=== PATIENT | male | born 1995 | race Caucasian/White ===

== ENCOUNTER → 2018-04-07 | Outpatient (REF) | payer SELFPAY ==
[2018-04-08 13:45] LABS: CHLAMYDIA DNA AMPLIFICATION NEGATIVE (NEGATIVE); GC DNA AMPLIFICATION NEGATIVE (NEGATIVE)
== END ==
LOC: M LAB REF 11:17
PROVIDERS: ATTEND Physician Assistant
DX: N50.819 Testicular pain, unspecified (principal)

== ENCOUNTER → 2018-11-24 | Outpatient (REF) | payer SELFPAY ==
[2018-11-24 20:36] LABS: CHLAMYDIA DNA AMPLIFICATION NEGATIVE (NEGATIVE); GC DNA AMPLIFICATION NEGATIVE (NEGATIVE)
== END ==
LOC: M LAB REF 18:42
PROVIDERS: ATTEND Physician Assistant
DX: R10.30 Lower abdominal pain, unspecified (principal)

== ENCOUNTER → 2018-12-01 | Outpatient (CLI) | payer SELFPAY ==
--- NOTE | 2018-12-01 13:13 | REP ---
Scrotal ultrasound for testicular pain: The right testis measures 3.7 x 2.13 x 3.4 cm. Left testis measures 3.88 x 2.19 x 2.99 cm. The testes are normal size. The right epididymal head measures 8.9 mm and left epididymal head measures 8.9 mm. There are no epididymal head cysts. There are no testicular masses or cysts. There is vascular flow in both testes. The Doppler resistive index of the intraparenchymal arteries of the right testis is 0.60 and left testis 0.56. Impression: Essentially scrotal ultrasound. Electronically Signed by Nacho Benton MD 12/01/2018 01:04 P
--- NOTE | 2018-12-01 13:16 | REP ---
REASON: Bilateral groin pain. Limited pelvic ultrasound examination was obtained with concentration on the inguinal region bilaterally. Multiple ultrasonographic images of the inguinal region bilaterally show no evidence of a mass or bowel containing hernia. IMPRESSION: Negative exam. Electronically Signed by Rodriguez Blum DO 12/01/2018 02:39 P
== END ==
LOC: M RAD 08:49
PROVIDERS: ATTEND Physician Assistant
DX: R10.30 Lower abdominal pain, unspecified (principal); N50.819 Testicular pain, unspecified